=== PATIENT | male | born 1940 | race American Indian/Alaskan Native ===

== ENCOUNTER 2018-10-08 07:06 | Emergency (ER) | payer MEDICARE, MEDICAID ==
[2018-10-08] MEDS ORDERED: IBUPROFEN PO ONE (07:53)
[2018-10-08] MEDS ORDERED: NORCO 5/325 PO ONE (07:53)
--- NOTE | 2018-10-08 08:01 | Emergency Department Report ---
HPI - General Chief Complaint: Weakness Time Seen by Provider: 10/08/18 07:46 - HPI HPI: Room 18 The patient is a 78-year-old male presenting with a chief complaint of right hip pain and weakness. The patient states approximately one week ago he went f ishing. The patient states then he noticed increasing pain in his right hip. Patient states the pain improves whenever he stands. Patient denies any preceding trauma or fever. Patient states he also began feeling weak diffusely. Patient denies nausea or vomiting. Patient denies chest pain or shortness breath. Patient states his right hip pain has a pain score of 4/10 and it is improved because he took Aleve earlier today Location: [See above] Duration: [See above] Quality: [See above] Severity: [See above] Modifying factors: [see above] Context: [see above] Mode of transportation: [not driving] ED Past Medical Hx - Past Medical History Hx Hypertension: Yes Hx Diabetes: Yes Hx COPD: Yes (no home O2) Additional medical history: high cholesterol. Gout - Surgical History Past Surgical History?: No Additional Surgical History: cataract surgery - Family History Family history: no significant - Social History Smoking Status: Current Every Day Smoker (1 pack per day) Substance Use Type: None, Alcohol (occasional) - Medications Home Medications: Home Medications Medication Instructions Recorded Confirmed Last Taken Type Clindamycin [Clindamycin CAP] 300 mg PO Q8H #30 cap 01/05/18 Unknown Rx Silver Sulfadiazine [Ssd] 25 gm TP BID #1 cream..g. 01/05/18 Unknown Rx HYDROcodone/APAP 5-325 [[place] 1 - 2 each PO Q6HR PRN #14 tablet 10/08/18 Unknown Rx 5/325] Ibuprofen [Motrin 800 MG tab] 800 mg PO Q8HR PRN #20 tablet 10/08/18 Unknown Rx ED Review of Systems ROS: Stated complaint: BACK/LEGS WEAK/DIABETIC Other details as noted in HPI Constitutional: weakness. denies: fever Eyes: denies: eye pain ENT: denies: throat pain Respiratory: no symptoms reported Cardiovascular: denies: chest pain Endocrine: no symptoms reported Gastrointestinal: denies: nausea, vomiting Genitourinary: denies: dysuria Musculoskeletal: arthralgia Neurological: denies: headache Physical Exam - Physical Exam Vital Signs: Vital Signs 10/08/18 07:15 Temperature 98.0 F Pulse Rate 70 Respiratory 20 Rate Blood Pressure 146/82 O2 Sat by Pulse 97 Oximetry Physical Exam: GENERAL: The patient is well-developed well-nourished male lying on stretcher not appearing to be in acute distress. [] HEENT: Normocephalic. Atraumatic. Extraocular motions are intact. Patient has moist mucous membranes. NECK: Supple. Trachea midline CHEST/LUNGS: Clear to auscultation. There is no respiratory distress noted. HEART/CARDIOVASCULAR: Regular. There is no tachycardia. There is no gallop rub or murmur. ABDOMEN: Abdomen is soft, nontender. Patient has normal bowel sounds. There is no abdominal distention. SKIN: There is no rash. There is no edema. There is no diaphoresis. NEURO: The patient is awake, alert, and oriented. The patient is cooperative. The patient has no focal neurologic deficits. The patient has normal speech MUSCULOSKELETAL: There is no evidence of acute injury. ED Course Vital Signs 10/08/18 07:15 Temperature 98.0 F Pulse Rate 70 Respiratory 20 Rate Blood Pressure 146/82 O2 Sat by Pulse 97 Oximetry ED Medical Decision Making - Lab Data Result diagrams: 10/08/18 07:47 10/08/18 07:47 Laboratory Tests 10/08/18 10/08/18 10/08/18 07:21 07:47 07:47 WBC 4.7 RBC 4.50 Hgb 14.7 Hct 43.9 MCV 98 H MCH 33 H MCHC 33 RDW 13.6 Plt Count 222 Lymph % (Auto) 24.7 [place] % (Auto) 8.6 H Eos % (Auto) 6.6 H Baso % (Auto) 0.2 Lymph # 1.2 [place] # 0.4 Eos # 0.3 Baso # 0.0 Seg Neutrophils % 59.9 Seg Neutrophils # 2.8 PT 13.0 INR 1.01 VBG pH Sodium Potassium Chloride Carbon Dioxide Anion Gap BUN Creatinine Estimated GFR BUN/Creatinine Ratio Glucose POC Glucose 135 H Calcium Magnesium Total Bilirubin AST ALT Alkaline Phosphatase Total Creatine Kinase CK-MB (CK-2) CK-MB (CK-2) Rel Index Troponin T Total Protein Albumin Albumin/Globulin Ratio TSH Free T4 Urine Color Urine Turbidity Urine pH Ur Specific [place] Urine Protein Urine Glucose (UA) Urine Ketones Urine Blood Urine Nitrite Urine Bilirubin Urine Urobilinogen Ur Leukocyte Esterase Urine WBC (Auto) Urine RBC (Auto) U Epithel Cells (Auto) 10/08/18 10/08/18 10/08/18 07:47 07:47 07:57 WBC RBC Hgb Hct MCV MCH MCHC RDW Plt Count Lymph % (Auto) [place] % (Auto) Eos % (Auto) Baso % (Auto) Lymph # [place] # Eos # Baso # Seg Neutrophils % Seg Neutrophils # PT INR VBG pH 7.379 Sodium 136 L Potassium 4.8 Chloride 100.9 Carbon Dioxide 23 Anion Gap 17 BUN 24 H Creatinine 1.3 Estimated GFR > 60 BUN/Creatinine Ratio 18 Glucose 151 H POC Glucose Calcium 9.7 Magnesium 1.90 Total Bilirubin 0.50 AST 19 ALT 22 Alkaline Phosphatase 87 Total Creatine Kinase 140 CK-MB (CK-2) 2.0 CK-MB (CK-2) Rel Index 1.4 Troponin T < 0.010 Total Protein 8.1 Albumin 4.4 Albumin/Globulin Ratio 1.2 TSH 2.920 Free T4 0.90 Urine Color Urine Turbidity Urine pH Ur Specific [place] Urine Protein Urine Glucose (UA) Urine Ketones Urine Blood Urine Nitrite Urine Bilirubin Urine Urobilinogen Ur Leukocyte Esterase Urine WBC (Auto) Urine RBC (Auto) U Epithel Cells (Auto) 10/08/18 08:12 WBC RBC Hgb Hct MCV MCH MCHC RDW Plt Count Lymph % (Auto) [place] % (Auto) Eos % (Auto) Baso % (Auto) Lymph # [place] # Eos # Baso # Seg Neutrophils % Seg Neutrophils # PT INR VBG pH Sodium Potassium Chloride Carbon Dioxide Anion Gap BUN Creatinine Estimated GFR BUN/Creatinine Ratio Glucose POC Glucose Calcium Magnesium Total Bilirubin AST ALT Alkaline Phosphatase Total Creatine Kinase CK-MB (CK-2) CK-MB (CK-2) Rel Index Troponin T Total Protein Albumin Albumin/Globulin Ratio TSH Free T4 Urine Color Yellow Urine Turbidity Clear Urine pH 5.[address] 1.020 Urine Protein <15 mg/dl Urine Glucose (UA) Neg Urine Ketones Neg Urine Blood Neg Urine Nitrite Neg Urine Bilirubin Neg Urine Urobilinogen 2.0 Ur Leukocyte Esterase Sm Urine WBC (Auto) 4.0 Urine RBC (Auto) 1.0 U Epithel Cells (Auto) 1.0 - EKG Data -: EKG Interpreted by De EKG shows normal: sinus rhythm Rate: normal - EKG Data When compared to previous EKG there are: previous EKG unavailable Interpretation: other (no skin changes seen) - Radiology Data Radiology results: report reviewed (right hip x-ray), image reviewed (right hip x-ray) interpreted by me: Right hip x-ray-no acute fractures. Degenerative changes left hip [facility] [address] [place] [address] XRay Report Signed Patient: NED DYKES MR#: [id number] 5 : 1940 Acct:[id number] Age/Sex: 78 / M ADM Date: 10/08/18 Loc: ED Attending Dr: Ordering Physician: TIFFANIE LORENZO MD Date of Service: 10/08/18 Procedure(s): XR hip 2-3V RT Accession Number(s): [id number] cc: TIFFANIE LORENZO MD Fluoro Time In Minutes: RIGHT HIP, 2 VIEWS INDICATION: Right hip pain. COMPARISON: None. IMPRESSION: No acute osseous or soft tissue abnormality. No significant DJD in the right hip. 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 Signer Name: Baljinder Zavala Jr, MD Signed: 10/08/2018 9:01 AM Workstation Name: [id number] Transcribed By: TTR Dictated By: BALJINDER ZAVALA JR, MD Electronically Authenticated By: BALJINDER ZAVALA JR, MD Signed Date/Time: 10/08/18900 DD/ 8 TD/TT: - Differential Diagnosis arthritis, occult fracture, DKA, hypothyroidism, dehydration Critical care attestation.: If time is entered above; I have spent that time in minutes in the direct care of this critically ill patient, excluding procedure time. ED Disposition Clinical Impression: Right hip pain Disposition: DC-01 TO HOME OR SELFCARE Is pt being admited?: No Does the pt Need Aspirin: No Condition: Stable Instructions: Arthralgia (ED) Additional Instructions: Return to the emergency department immediately should you develop worsening symptoms, fever, inability to tolerate food or liquid or any other concerns. Prescriptions: Ibuprofen [Motrin 800 MG tab] 800 mg PO Q8HR PRN #20 tablet PRN Reason: Pain , Severe (7-10) HYDROcodone/APAP 5-325 [[place] 5/325] 1 - 2 each PO Q6HR PRN #14 tablet PRN Reason: Pain Referrals: MELL GONZALEZ MD [Primary Care Provider] - 3-5 Days MAO BERRIOS MD [Staff Physician] - 3-5 Days (Dr. Berrios is an orthopedic surgeon. Please follow-up with him for further evaluation) Time of Disposition: 09:11
[2018-10-08 08:06] LABS: Basophils % (Auto) 0.2 % (0.0-1.8); Eosinophils # (Auto) 0.3 K/mm3 (0.0-0.4); Eosinophils % (Auto) 6.6 % (0.0-4.3); Hematocrit 43.9 % (35.5-45.6); Hemoglobin 14.7 gm/dl (11.8-15.2); Lymphocytes # (Auto) 1.2 K/mm3 (1.2-5.4); Lymphocytes % (Auto) 24.7 % (13.4-35.0); Mean Corpuscular HGB Conc 33 % (32-34); Mean Corpuscular Volume 98 fl (84-94); Monocytes # (Auto) 0.4 K/mm3 (0.0-0.8); Monocytes % (Auto) 8.6 % (0.0-7.3); Platelet Count 222 K/mm3 (140-440); Red Cell Distribution Width 13.6 % (13.2-15.2)
[2018-10-08 08:25] LABS: Alanine Aminotransferase 22 units/L (7-56); Albumin 4.4 g/dL (3.9-5); BUN/Creatinine Ratio 18; Blood Urea Nitrogen 24 mg/dL (9-20); Calcium 9.7 mg/dL (8.4-10.2); Hemolysis Index 7; INR 1.01 (0.87-1.13)
[2018-10-08 08:33] VITALS: BP 129/71
[2018-10-08 08:33] LABS: Free T4 (Free Thyroxine) 0.9 ng/dL (0.76-1.46)
[2018-10-08 08:40] LABS: Bilirubin,Urine NEG (Negative); Blood,Urine NEG (Negative); Color,Urine Yellow (Yellow); Protein,Urine <15 mg/dL mg/dL (Negative)
--- NOTE | 2018-10-08 09:05 | XRay Report ---
RIGHT HIP, 2 VIEWS INDICATION: Right hip pain. COMPARISON: None. IMPRESSION: No acute osseous or soft tissue abnormality. No significant DJD in the right hip. Mod erate osteoarthritic changes are noted at the left hip and bilateral SI joints. Signer Name: Baljinder Zavala Jr, MD Signed: 10/08/2018 9:01 AM Workstation Name: [id number]
== END 2018-10-08 09:21 | disposition home or self-care (01) ==
LOC: ED 07:06
DX: M25.551 Pain in right hip (principal); I10 Essential (primary) hypertension; E11.9 Type 2 diabetes mellitus without complications; J44.9 Chronic obstructive pulmonary disease, unspecified; E78.00 Pure hypercholesterolemia, unspecified; M10.9 Gout, unspecified; F17.210 Nicotine dependence, cigarettes, uncomplicated; Z79.899 Other long term (current) drug therapy
CPT/HCPCS: 36415; 80053; 81001; 82550; 82553; 82805; 82962; 83735; 84439; 84443; 84484; 85025; 85610; 93005; 93010; 99284